=== PATIENT | female | born 1970 | race Caucasian/White ===

== ENCOUNTER → 2017-11-18 10:07 | Outpatient (CLI) | payer OTHER, SELFPAY ==
--- NOTE | 2017-11-18 10:09 | DI.US.S_ITS ---
PROCEDURE: US ABD AORTA ANEURYSM SCREEN INDICATIONS: Family History bicuspid/aortic valve issues TECHNIQUE: Real time scanning was performed of the aorta and iliac arteries, with image documentation. COMPARISON: None. FINDINGS: Aorta: Proximal aortic diameter measures 2 cm. Mid-aorta measures 1.4 cm. Distal aortic diameter is 1.4 cm. Iliac arteries: Right common iliac artery measures 0.9 cm. Left common iliac artery measures 0.9 cm. IMPRESSION: Negative for aneurysm. Dictated by: Nayan Werner M.D. on 11/18/2017 at 10:58 Approved by: Nayan Werner M.D. on 11/18/2017 at 10:59
--- NOTE | 2017-11-18 10:09 | DI.ECHO.S_ITS ---
[facility]---------+ [facility] +---------+ : : [address] : : : : [id number] : : : : Phone: [phone] Echocardiogram Report + + :Name: HORTENSIA SIDDIQI Study Date: 11/18/2017 Height: 65 in : :[facility] Exam Location: [place] Weight: 213 lb : : Gender: Female BSA: 2.0 m2 : :: 1970 Age: 47 yrs BP: 130/80 mmHg: :Reason For Study: Fam History of bicuspid aortic valve : : Performed By: Cynthia Page : :Referring: SHIMON YING : + + Interpretation Summary 1) Normal left ventricular thickness, size, wall motion, and systolic function (EF 60-65%). 2) Normal right ventricular size and function. 3) No significant valvular abnormalities. Aortic valve is trileaflet. 4) No prior echo available for comparison. Procedure: A two-dimensional transthoracic echocardiogram with color flow and Doppler was performed. The study quality was technically adequate. There is no prior echocardiogram noted for this patient. The patient was in sinus bradycardia with heart rates between 57-61 bpm during the exam. Left Ventricle: The left ventricle is normal in size, wall thickness, and systolic function without any focal wall motion abnormalities. The ejection fraction is estimated to be 60-65%. Assessment of diastolic parameters indicates normal left ventricular diastolic function and normal filling pressures. Right Ventricle: The right ventricle is normal in size and function. Atria: Both atria are normal in size. There is no Doppler evidence for an interatrial shunt. Mitral Valve: The mitral valve is normal in structure and function. There is trace mitral regurgitation. Aortic Valve: The aortic valve is trileaflet. The aortic valve opens well. There is no aortic valve stenosis. No aortic regurgitation is present. Tricuspid Valve: The tricuspid valve is normal in structure and function. There is a trace or physiologic amount of tricuspid regurgitation. The right ventricular systolic pressure is estimated at 21 mmHg assuming a right atrial pressure of 3 mm Hg. Pulmonic Valve: The pulmonic valve is not well visualized. There is a trace or physiologic amount of pulmonic regurgitation. Great Vessels: The aortic root is normal size. The ascending aorta is normal in size. The aortic arch could not be visualized. The pulmonary is not well visualized. The IVC is of normal diameter and collapses greater than 50% with a sniff. This suggests a low right atrial pressure of 3 mm Hg. Pericardium/ Pleura There is no pericardial effusion. There is no pleural effusion. MMode/2D Measurements & Calculations LVIDd: 4.9 cm LVOT diam: 1.9 cm LVIDs: 3.0 cm Ao root diam: 3.4 cm FS: 37.7 % asc Aorta Diam: 3.0 cm EPSS: 0.05 cm IVSd: 0.70 cm LVPWd: 0.73 cm LV allen. diameter/BSA (cm/m^2): 2.4 LV sys. diameter/BSA (cm/m^2): 1.5 LA A2 area: 20.6 cm2 RA long axis: 5.3 cm LA A4 area: 17.0 cm2 RA area: 16.1 cm2 LA length (vol): 6.1 cm RA vol: 41.6 ml LA vol: 48.7 ml RA : 20.5 ml/m2 LA vol index: 24.0 ml/m2 IVC diam: 1.5 cm Doppler Measurements & Calculations Ao V2 max: 118.9 cm/sec LVOT Max Clemente: 82.1 cm/sec Ao V2 mean: 91.1 cm/sec LV V1 max P.7 mmHg Ao max P.7 mmHg LV V1 VTI: 18.7 cm Ao mean P.5 mmHg MARGARITA(I,D): 2.0 cm2 Ao V2 VTI: 26.3 cm MARGARITA(V,D): 1.9 cm2 sev ratio: 0.71 MARGARITA indexed to BSA (cm^2/m^2): 0.99 MV E max clemente: 98.2 cm/sec TR max clemente: 211.7 cm/sec MV A max clemente: 57.0 cm/sec TR max P.9 mmHg MV E/A: 1.7 PA V2 max: 70.6 cm/sec Med Peak E' Clemente: 10.0 cm/sec PA V2 mean: 50.2 cm/sec E/E' med: 9.8 PA mean P.1 mmHg Lat Peak E' Clemente: 11.2 cm/sec PA Accel Time: 0.15 sec E/E' lat: 8.7 E/e' average: 9.3 MV dec time: 0.21 sec MV P1/2t: 59.4 msec MV P1/2t max clemente: 97.6 cm/sec MVA(P1/2t): 3.7 cm2 Reading Physician:03:33 PM
== END ==
PROVIDERS: Family Provider Family Medicine; PCP Family Medicine; Visit Provider Family Medicine
DX: Z13.6 Encounter for screening for cardiovascular disorders (principal); Z82.49 Family history of ischemic heart disease and other diseases of the circulatory system
CPT/HCPCS: 76706; 93306

== ENCOUNTER → 2017-12-17 10:47 | Outpatient (CLI) | payer OTHER, SELFPAY ==
--- NOTE | 2017-12-17 | DI.MG.S_ITS ---
BILATERAL DIGITAL SCREENING MAMMOGRAM 3D/2D WITH CAD: 12/17/2017 CLINICAL: Routine screening. Family history of breast cancer. Comparison is made to exams dated: 10/03/2016 mammogram - [facility], 02/22/2015 mammogram, and 08/09/2013 mammogram - [facility]. There are scattered fibroglandular elements in both breasts. Current study was also evaluated with a Computer Aided Detection (CAD) system. No significant masses, calcifications, or other findings are seen in either breast. There has been no significant interval change. IMPRESSION: NEGATIVE There is no mammographic evidence of malignancy. A 1 year screening mammogram is recommended. NOTE: For mammograms, a report in lay terms will be sent to the patient. Approximately 15% of breast malignancies will not be visualized mammographically. In the management of a palpable breast mass, a negative mammogram must not discourage biopsy of a clinically suspicious lesion. Electronically Signed By: Chris harrington/liliane:12/17/2017 16:36:07 letter sent: Normal Exam ACR BI-RADS Category 1: Negative 3341F
== END ==
PROVIDERS: PCP Family Medicine; Visit Provider Family Medicine
DX: Z12.31 Encounter for screening mammogram for malignant neoplasm of breast (principal); Z80.3 Family history of malignant neoplasm of breast
CPT/HCPCS: 77063; 77067

== ENCOUNTER → 2018-11-12 11:51 | Outpatient (CLI) | payer OTHER, SELFPAY ==
--- NOTE | 2018-11-12 11:54 | DI.RAD.S_ITS ---
PROCEDURE: XR HIP W PEL IF DONE LT MIN 4V INDICATIONS: hip pain, osteophytes? TECHNIQUE: AP pelvis with lateral view(s) of the bilateral hip(s). COMPARISON: None. FINDINGS: Bones: No acute fractures or dislocations. Pelvic ring appears intact. Minimal degenerative changes of the bilateral hip joints with small ossifications involving the bilateral superolateral acetabular rim which may represent accessory ossicles versus sequela of chronic labral degenerative change. Small enthesophyte/spur over the left greater trochanter. No suspicious bony lesions. Soft tissues: The visualized bowel gas pattern is normal. No suspicious soft tissue calcifications. Surgical clips in the right lower abdomen likely from prior appendectomy. IMPRESSION: Bilateral hip without acute osseous abnormalities. Minimal bilateral hip joint degenerative change. Small ossifications overlying the bilateral superolateral acetabular rim which may be seen with accessory ossicles versus sequela of chronic labral degenerative change. Dictated by: Justin Rm M.D. on 11/12/2018 at 13:47 Approved by: Justni Rm M.D. on 11/12/2018 at 13:49
== END ==
PROVIDERS: PCP Family Medicine; Visit Provider Family Medicine
DX: M25.559 Pain in unspecified hip (principal)
CPT/HCPCS: 73522

== ENCOUNTER → 2019-01-19 08:00 | Outpatient (CLI) | payer OTHER, SELFPAY ==
--- NOTE | 2019-01-19 | DI.MG.S_ITS ---
BILATERAL DIGITAL SCREENING MAMMOGRAM 3D/2D WITH CAD: 01/19/2019 CLINICAL: Routine screening. Family history of breast cancer. Comparison is made to exams dated: 12/17/2017 mammogram, 10/03/2016 mammogram - [facility], and 02/22/2015 mammogram - [facility]. There are scattered fibroglandular elements in both breasts. Current study was also evaluated with a Computer Aided Detection (CAD) system. No significant masses, calcifications, or other findings are seen in either breast. There has been no significant interval change. IMPRESSION: NEGATIVE There is no mammographic evidence of malignancy. A 1 year screening mammogram is recommended. This exam was interpreted at Station ID: [id number]. NOTE: For mammograms, a report in lay terms will be sent to the patient. Approximately 15% of breast malignancies will not be visualized mammographically. In the management of a palpable breast mass, a negative mammogram must not discourage biopsy of a clinically suspicious lesion. Electronically Signed By: Justin smith/liliane:01/19/2019 08:31:15 letter sent: Normal Exam ACR BI-RADS Category 1: Negative 3341F
== END ==
PROVIDERS: PCP Family Medicine; Visit Provider Family Medicine
DX: Z12.31 Encounter for screening mammogram for malignant neoplasm of breast (principal); Z80.3 Family history of malignant neoplasm of breast
CPT/HCPCS: 77063; 77067

== ENCOUNTER → 2019-04-11 14:13 | Outpatient (CLI) | payer OTHER, SELFPAY ==
--- NOTE | 2019-04-11 | DI.US.S_ITS ---
PROCEDURE: US SOFT TISSUE HEAD AND NECK INDICATIONS: CYST AFTER RIGHT OCCIIPITAL NERVE BLOCK TECHNIQUE: Real-time scanning was performed of the neck region of interest, with image documentation. COMPARISON: None. FINDINGS: There is a small circumscribed hypoechoic nodule with fatty hilum at the right posterior scalp in the region of pain. This measures 0.9 x 1 x 0.4 cm. No surrounding hyperemia. No mass or loculated fluid collection. IMPRESSION: Small right occipital scalp lymph node corresponding to the region of interest. The lymph node is morphologically normal. Dictated by: Deangelo Kilpatrick M.D. on 04/11/2019 at 16:00 Approved by: Deangelo Kilpatrick M.D. on 04/11/2019 at 16:03
== END ==
PROVIDERS: PCP Family Medicine; Referring Provider Family Medicine; Visit Provider Family Medicine
DX: L72.9 Follicular cyst of the skin and subcutaneous tissue, unspecified (principal)
CPT/HCPCS: 76536

== ENCOUNTER → 2019-05-16 09:30 | Outpatient (CLI) | payer OTHER, SELFPAY ==
[2019-05-16 10:29] LABS: Add Manual Diff / Slide Review NO; Basophils Absolute Auto 0 /uL (0-100); Basophils Percent Auto 0.5 % (0-2); Eosinophils Absolute Auto 200 /uL (0-450); Eosinophils Percent Auto 2.9 % (2-4); Hematocrit 40.6 % (36-46); Hemoglobin 13.5 g/dL (12.0-16.0); Lymphocytes Absolute Auto 2000 /uL (1100-4500); Mean Corpuscular HGB Conc 33.4 % (30-36); Mean Corpuscular Hemoglobin 31.3 PG (26-34); Mean Corpuscular Volume 93.6 fL (80-100); Monocytes Absolute Auto 600 /uL (0-900); Monocytes Percent Auto 7.2 % (3-14); Neutrophils Absolute Auto 5200 /uL (1500-7000); Neutrophils Percent Auto 64.4 % (50-75); Platelet Count 365 X10^3/uL (150-400); Red Blood Cell Count 4.33 X10^6/uL (4.0-5.2); Red Cell Distribution Width 12.4 % (11.6-14.8); White Blood Cell Count 8.1 X10^3/uL (4.5-11.0)
[2019-05-16 10:48] LABS: Alanine Aminotransferase 21 IU/L (<35); Albumin 4.6 g/dL (3.5-5.0); Albumin Globulin Ratio 1.6 (1.0-2.8); Alkaline Phosphatase 56 U/L (38-126); Aspartate Aminotransferase 34 IU/L (14-36); BUN Creatinine Ratio 21.1 (6-22); Bilirubin Total 1.4 mg/dL (0.2-1.3); Blood Urea Nitrogen 19 mg/dL (7-17); Carbon Dioxide 26 mmol/L (22-32); Chloride 103 mmol/L (98-107); Cholesterol 172 mg/dL (140-199); Estimated Glomerular Filt Rate > 60.0 mL/min (>60); Globulin 2.9 g/dL (1.7-4.1); Glucose 100 mg/dL (70-100); HDL Cholesterol 63 mg/dL (40-60); HEMOLYSIS < 15 (0-50); LDL Cholesterol Calculated 89 mg/dL (<100); Potassium 5.3 mmol/L (3.4-5.1); Sodium 139 mmol/L (137-145); Total Protein 7.5 g/dL (6.3-8.2); Triglycerides 101 mg/dL (35-150)
== END ==
PROVIDERS: PCP Family Medicine; Referring Provider Family Medicine; Visit Provider Family Medicine
DX: Z13.1 Encounter for screening for diabetes mellitus (principal); E78.5 Hyperlipidemia, unspecified; Z86.2 Personal history of diseases of the blood and blood-forming organs and certain disorders involving the immune mechanism
CPT/HCPCS: 36415; 80053; 80061; 85025

== ENCOUNTER → 2019-11-16 09:50 | Outpatient (CLI) | payer OTHER, SELFPAY ==
[2019-11-16 11:13] LABS: Alanine Aminotransferase 25 IU/L (<35); Albumin 4.4 g/dL (3.5-5.0); Albumin Globulin Ratio 1.7 (1.0-2.8); Alkaline Phosphatase 50 U/L (38-126); Aspartate Aminotransferase 37 IU/L (14-36); Bilirubin Total 1.1 mg/dL (0.2-1.3); Blood Urea Nitrogen 16 mg/dL (7-17); Calcium 9.5 mg/dL (8.4-10.2); Carbon Dioxide 30 mmol/L (22-32); Chloride 102 mmol/L (98-107); Estimated Glomerular Filt Rate > 60.0 mL/min (>60); Globulin 2.6 g/dL (1.7-4.1); Glucose 82 mg/dL (70-100); HEMOLYSIS 22 (0-50); Potassium 5.2 mmol/L (3.4-5.1); Sodium 136 mmol/L (137-145)
== END ==
PROVIDERS: PCP Family Medicine; Referring Provider Family Medicine; Visit Provider Family Medicine
DX: E80.6 Other disorders of bilirubin metabolism (principal); E87.5 Hyperkalemia
CPT/HCPCS: 36415; 80053

== ENCOUNTER → 2019-12-30 09:13 | Outpatient (CLI) | payer OTHER, SELFPAY ==
[2019-12-30 10:42] LABS: Alanine Aminotransferase 20 IU/L (<35); Albumin 4.3 g/dL (3.5-5.0); Albumin Globulin Ratio 1.5 (1.0-2.8); Alkaline Phosphatase 50 U/L (38-126); Aspartate Aminotransferase 31 IU/L (14-36); BUN Creatinine Ratio 16.5 (6-22); Bilirubin Total 0.9 mg/dL (0.2-1.3); Blood Urea Nitrogen 13 mg/dL (7-17); Calcium 9.4 mg/dL (8.4-10.2); Carbon Dioxide 31 mmol/L (22-32); Chloride 104 mmol/L (98-107); Estimated Glomerular Filt Rate > 60.0 mL/min (>60); Globulin 2.9 g/dL (1.7-4.1); Glucose 100 mg/dL (70-100); HEMOLYSIS < 15 (0-50); Potassium 4.6 mmol/L (3.4-5.1); Sodium 138 mmol/L (137-145); Total Protein 7.2 g/dL (6.3-8.2)
== END ==
PROVIDERS: PCP Family Medicine; Referring Provider Family Medicine; Visit Provider Family Medicine
DX: E80.6 Other disorders of bilirubin metabolism (principal); E87.5 Hyperkalemia
CPT/HCPCS: 36415; 80053

== ENCOUNTER → 2020-05-17 14:09 | Outpatient (CLI) | payer OTHER, SELFPAY ==
--- NOTE | 2020-05-17 | DI.MG.S_ITS ---
BILATERAL DIGITAL SCREENING MAMMOGRAM 3D/2D WITH CAD: 05/17/2020 CLINICAL: Routine Screening Family history of breast cancer. Comparison is made to exams dated: 01/19/2019 mammogram, 12/17/2017 mammogram, and 10/03/2016 mammogram - [facility]. There are scattered fibroglandular elements in both breasts. Current study was also evaluated with a Computer Aided Detection (CAD) system. No significant masses, calcifications, or other findings are seen in either breast. There has been no significant interval change. IMPRESSION: NEGATIVE There is no mammographic evidence of malignancy. A 1 year screening mammogram is recommended. This exam was interpreted at Station ID: [id number]. NOTE: For mammograms, a report in lay terms will be sent to the patient. Approximately 15% of breast malignancies will not be visualized mammographically. In the management of a palpable breast mass, a negative mammogram must not discourage biopsy of a clinically suspicious lesion. Electronically Signed By: Chris harrington/liliane:05/17/2020 14:30:46 letter sent: Normal Exam ACR BI-RADS Category 1: Negative 3341F
== END ==
PROVIDERS: PCP Family Medicine; Referring Provider Family Medicine; Visit Provider Family Medicine
DX: Z12.31 Encounter for screening mammogram for malignant neoplasm of breast (principal); Z80.3 Family history of malignant neoplasm of breast
CPT/HCPCS: 77063; 77067

== ENCOUNTER → 2020-10-11 07:15 | Outpatient (CLI) | payer OTHER, SELFPAY ==
--- NOTE | 2020-10-11 07:16 | DI.US.S_ITS ---
PROCEDURE: US SOFT TISSUE HEAD AND NECK INDICATIONS: INTERMITTANT POSTERIOR SCALP LUMP WITH MIGRAINES TECHNIQUE: Real-time scanning was performed of the neck region of interest, with image documentation. COMPARISON: [facility], SOFT TISSUE HEAD AND NECK, 04/11/2019, 14:28. FINDINGS: Assessment was performed in the area of current clinical concern, right posterior inferior scalp open lump. In this area there is a normal appearing lymph node measuring 1.0 x 0.3 x 0.9 cm with 2 mm thick cortex, normal. No additional mass or fluid collection is seen. IMPRESSION: Normal appearing lymph node in the area of current clinical concern. Dictated by: Mychal Marquez M.D. on 10/11/2020 at 10:08 Approved by: Mychal Marquez M.D. on 10/11/2020 at 10:09
== END ==
PROVIDERS: PCP Family Medicine; Referring Provider Family Medicine; Visit Provider Family Medicine
DX: L72.9 Follicular cyst of the skin and subcutaneous tissue, unspecified (principal); G43.909 Migraine, unspecified, not intractable, without status migrainosus
CPT/HCPCS: 76536

== ENCOUNTER → 2021-02-06 15:05 | Outpatient (CLI) | payer OTHER, SELFPAY ==
[2021-02-06 15:31] LABS: COVID19 -Nasal RAPID Negative (Negative)
== END ==
PROVIDERS: PCP Family Medicine; Visit Provider Physician Assistant
DX: Z20.822 Contact with and (suspected) exposure to COVID-19 (principal)
CPT/HCPCS: 87635

== ENCOUNTER → 2021-02-06 15:20 | Outpatient (CLI) | payer OTHER, SELFPAY ==
--- NOTE | 2021-02-06 15:21 | DI.RAD.S_ITS ---
PROCEDURE: XR CHEST 2V INDICATIONS: bronchitis vs PNA, asthma, SOB TECHNIQUE: 2 views of the chest were acquired. COMPARISON: [facility], , CHEST 2 VIEW, 03/16/2016, 15:56. FINDINGS: Surgical changes and devices: None. Lungs and pleura: Lungs are clear. No pleural effusions or pneumothorax. Mediastinum: Mediastinal contours are normal. Heart size is normal. Bones and chest wall: No suspicious bony abnormalities. Soft tissues appear unremarkable. IMPRESSION: No acute cardiopulmonary disease process. Dictated by: Remedios Roberts MD, PhD on 02/06/2021 at 15:44 Approved by: Remedios Roberts MD, PhD on 02/06/2021 at 15:46
== END ==
PROVIDERS: PCP Family Medicine; Referring Provider Physician Assistant; Visit Provider Physician Assistant
DX: J06.9 Acute upper respiratory infection, unspecified (principal); J45.909 Unspecified asthma, uncomplicated; R06.02 Shortness of breath; Z20.822 Contact with and (suspected) exposure to COVID-19
CPT/HCPCS: 71046; 87635

== ENCOUNTER → 2021-05-28 14:23 | Outpatient (CLI) | payer OTHER, SELFPAY ==
--- NOTE | 2021-05-28 | DI.MG.S_ITS ---
BILATERAL DIGITAL SCREENING MAMMOGRAM 3D/2D WITH CAD: 05/28/2021 CLINICAL: Family history of breast cancer. Routine screening. Comparison is made to exams dated: 05/17/2020 mammogram, 01/19/2019 mammogram, and 12/17/2017 mammogram - [facility]. The tissue of both breasts is predominantly fatty. Current study was also evaluated with a Computer Aided Detection (CAD) system. No significant masses, calcifications, or other findings are seen in either breast. There has been no significant interval change. IMPRESSION: NEGATIVE There is no mammographic evidence of malignancy. A 1 year screening mammogram is recommended. This exam was interpreted at Station ID: [id number]. NOTE: For mammograms, a report in lay terms will be sent to the patient. Approximately 15% of breast malignancies will not be visualized mammographically. In the management of a palpable breast mass, a negative mammogram must not discourage biopsy of a clinically suspicious lesion. Electronically Signed By: Tangela acosta/liliane:05/28/2021 14:59:30 letter sent: Normal Exam ACR BI-RADS Category 1: Negative 3341F
== END ==
PROVIDERS: PCP Family Medicine; Referring Provider Family Medicine; Visit Provider Family Medicine
DX: Z12.31 Encounter for screening mammogram for malignant neoplasm of breast (principal); Z80.3 Family history of malignant neoplasm of breast
CPT/HCPCS: 77063; 77067

== ENCOUNTER → 2021-07-07 10:36 | Outpatient (CLI) | payer OTHER, SELFPAY | PROVIDERS: PCP Family Medicine; Visit Provider Physician Assistant | DX: J02.9 Acute pharyngitis, unspecified (principal) | CPT/HCPCS: 87070 ==

== ENCOUNTER → 2022-01-29 07:19 | Outpatient (CLI) | payer OTHER, SELFPAY ==
[2022-01-29 08:09] LABS: Influenza A - CEPHEID Flu A POSITIVE (NEGATIVE); Influenza B - CEPHEID Flu B NEGATIVE (NEGATIVE); Respiratory Syncytial Virus Negative (Negative)
[2022-01-29 08:13] LABS: COVID-19 CEPHEID 4-PLEX PCR Negative (Negative)
== END ==
PROVIDERS: PCP Family Medicine; Visit Provider Nurse Practitioner Family
DX: R05.9 Cough, unspecified (principal)
CPT/HCPCS: 0241U

== ENCOUNTER → 2022-06-02 | Outpatient (CLI) | payer OTHER, SELFPAY ==
--- NOTE | 2022-06-03 15:37 | DI.MG.S_ITS ---
Procedure: MM screening mammo BI BILATERAL DIGITAL SCREENING MAMMOGRAM 3D/2D WITH CAD: 06/02/2022 CLINICAL: Routine screening. Family history of breast cancer. Comparison is made to exams dated: 05/28/2021 mammogram, 05/17/2020 mammogram, and 01/19/2019 mammogram - [facility]. There are scattered areas of fibroglandular density in both breasts (category b / 25%-50% glandular tissue). Current study was also evaluated with a Computer Aided Detection (CAD) system. No significant masses, calcifications, or other findings are seen in either breast. There has been no significant interval change. IMPRESSION: NEGATIVE There is no mammographic evidence of malignancy. A 1 year screening mammogram is recommended. Based on the Tyrer Cuzick model (a risk assessment model) the patient?s lifetime risk is 11.1% and her 10 year risk is 2.6%. According to the ACR, ACS, and NCCN guidelines, an annual breast MRI exam along with mammogram is recommended if the patient?s lifetime risk is 20% or greater. This exam was interpreted at Station ID: [id number]. Continued Report - Page 2 of 2 Patient Name: HORTENSIA SIDDIQI date: 1970 Sex: F Attending Physician: Elías Indications: Date: 06/02/2022 13:36 At the request of: KOBI ASLAZAR Procedure: MM screening mammo BI NOTE: For mammograms, a report in lay terms will be sent to the patient. Approximately 15% of breast malignancies will not be visualized mammographically. In the management of a palpable breast mass, a negative mammogram must not discourage biopsy of a clinically suspicious lesion. Electronically Signed By: Yordan wheatley/liliane:06/02/2022 13:36:14 letter sent: Normal Exam ACR BI-RADS Category 1: Negative 3341F
== END ==
LOC: MAMMO 13:18
PROVIDERS: PCP Family Medicine; Referring Provider Family Medicine; Visit Provider Family Medicine
DX: Z12.31 Encounter for screening mammogram for malignant neoplasm of breast (principal); Z80.3 Family history of malignant neoplasm of breast
CPT/HCPCS: 77063; 77067

== ENCOUNTER → 2022-07-07 09:03 | Outpatient (CLI) | payer OTHER, SELFPAY ==
[2022-07-07 11:26] LABS: Alanine Aminotransferase 21 IU/L (<35); Albumin 4.4 g/dL (3.5-5.0); Albumin Globulin Ratio 1.8 (1.0-2.8); Alkaline Phosphatase 56 U/L (38-126); Aspartate Aminotransferase 26 IU/L (14-36); BUN Creatinine Ratio 21.4 (6-22); Blood Urea Nitrogen 18 mg/dL (7-17); Calcium 9.4 mg/dL (8.4-10.2); Carbon Dioxide 27 mmol/L (22-32); Chloride 104 mmol/L (98-107); Cholesterol 175 mg/dL (140-199); Estimated Glomerular Filt Rate > 60 mL/min (>60); Globulin 2.4 g/dL (1.7-4.1); Glucose 94 mg/dL (70-100); HDL Cholesterol 55 mg/dL (40-60); HEMOLYSIS < 15 (0-50); LDL Cholesterol Calculated 84 mg/dL (<100); Potassium 4.8 mmol/L (3.4-5.1); Sodium 137 mmol/L (137-145); Total Protein 6.8 g/dL (6.3-8.2); Triglycerides 181 mg/dL (35-150)
[2022-07-07 11:50] LABS: TSH w/ Reflex to FT4 0.99 uIU/mL (0.47-4.68)
== END ==
PROVIDERS: PCP Family Medicine; Referring Provider Family Medicine; Visit Provider Family Medicine
DX: E03.9 Hypothyroidism, unspecified (principal); E78.5 Hyperlipidemia, unspecified; E87.5 Hyperkalemia
CPT/HCPCS: 36415; 80053; 80061; 84443

== ENCOUNTER → 2023-01-01 12:14 | Outpatient (CLI) | payer OTHER, SELFPAY ==
--- NOTE | 2023-01-01 12:15 | DI.RAD.S_ITS ---
PROCEDURE: XR FOOT LT MIN 3V INDICATIONS: Left toe injury TECHNIQUE: 3 views of the foot were acquired. COMPARISON: None. FINDINGS: Bones: No acute fractures or dislocations. No suspicious bony lesions. Moderate degenerative changes of the left 1st metatarsophalangeal joint. Prominent plantar calcaneal enthesophyte. Soft tissues: No tibiotalar joint effusion. Achilles tendon appears normal. IMPRESSION: Left foot without acute fracture or dislocation. Moderate degenerative changes of the 1st metatarsophalangeal joint. Prominent plantar calcaneal enthesophyte. If there are persistent symptoms or clinical suspicion for pathology, then repeat radiographs or advanced imaging (CT or MRI) may be considered for further evaluation. Dictated by: Justin Rm M.D. on 01/01/2023 at 13:47 Approved by: Justin Rm M.D. on 01/01/2023 at 13:48
== END ==
PROVIDERS: PCP Family Medicine; Referring Provider Nurse Practitioner Family; Visit Provider Nurse Practitioner Family
DX: M79.672 Pain in left foot (principal); M77.32 Calcaneal spur, left foot
CPT/HCPCS: 73630

== ENCOUNTER → 2023-02-16 11:45 | Outpatient (CLI) | payer OTHER, SELFPAY ==
--- NOTE | 2023-02-16 11:48 | DI.RAD.S_ITS ---
PROCEDURE: XR SHOULDER RT MIN 2V INDICATIONS: Deep anterior shoulder pain TECHNIQUE: 3 views of the shoulder were acquired. COMPARISON: None. FINDINGS: Bones: No fractures or dislocations. No suspicious bony lesions. Visualized ribs appear intact. Soft tissues: No suspicious soft tissue calcifications. IMPRESSION: No acute bony abnormality. Dictated by: Stephen Tariq M.D. on 02/16/2023 at 14:06 Approved by: Stephen Tariq M.D. on 02/16/2023 at 14:12
== END ==
PROVIDERS: PCP Family Medicine; Referring Provider Family Medicine; Visit Provider Family Medicine
DX: M25.511 Pain in right shoulder (principal)
CPT/HCPCS: 73030

== ENCOUNTER → 2023-04-10 06:58 | Outpatient (CLI) | payer OTHER, SELFPAY ==
[2023-04-10 08:04] LABS: Add Manual Diff / Slide Review NO; Basophils Absolute Auto 100 /uL (0-100); Basophils Percent Auto 0.7 % (0-2); Eosinophils Absolute Auto 300 /uL (0-450); Eosinophils Percent Auto 4.3 % (2-4); Hematocrit 38.2 % (36-46); Hemoglobin 12.9 g/dL (12.0-16.0); Lymphocytes Absolute Auto 2100 /uL (1100-4500); Mean Corpuscular HGB Conc 33.7 % (30-36); Mean Corpuscular Hemoglobin 29.9 PG (26-34); Mean Corpuscular Volume 88.7 fL (80-100); Monocytes Absolute Auto 600 /uL (0-900); Monocytes Percent Auto 7.8 % (3-14); Neutrophils Absolute Auto 4100 /uL (1500-7000); Neutrophils Percent Auto 57.2 % (50-75); Platelet Count 335 X10^3/uL (150-400); Red Blood Cell Count 4.31 X10^6/uL (4.0-5.2); Red Cell Distribution Width 13.2 % (11.6-14.8); White Blood Cell Count 7.1 X10^3/uL (4.5-11.0)
[2023-04-10 08:07] LABS: Hemoglobin A1C% w Est Avg Glu 5.3 % (4.0-6.0)
[2023-04-10 08:29] LABS: Alanine Aminotransferase 31 IU/L (<35); Albumin 4.2 g/dL (3.5-5.0); Albumin Globulin Ratio 1.5 (1.0-2.8); Alkaline Phosphatase 72 U/L (38-126); Aspartate Aminotransferase 36 IU/L (14-36); BUN Creatinine Ratio 14.6 (6-22); Bilirubin Total 0.7 mg/dL (0.2-1.3); Blood Urea Nitrogen 12 mg/dL (7-17); Calcium 9.6 mg/dL (8.4-10.2); Carbon Dioxide 27 mmol/L (22-32); Chloride 99 mmol/L (98-107); Cholesterol 192 mg/dL (140-199); Estimated Glomerular Filt Rate > 60 mL/min (>60); Globulin 2.8 g/dL (1.7-4.1); Glucose 96 mg/dL (70-100); HDL Cholesterol 51 mg/dL (40-60); HEMOLYSIS < 15 (0-50); LDL Cholesterol Calculated 87 mg/dL (<100); Potassium 4.1 mmol/L (3.4-5.1); Sodium 137 mmol/L (137-145); Triglycerides 268 mg/dL (35-150)
[2023-04-10 08:59] LABS: TSH w/ Reflex to FT4 1.83 uIU/mL (0.47-4.68)
[2023-04-11 21:52] LABS: High Sensitivity CRP - Cardiac 4.7 mg/L (1.0-3.0)
[2023-04-14 09:28] LABS: Insulin Level Total 11.5 uIU/mL (2.6-24.9)
== END ==
PROVIDERS: Family Medicine; PCP Family Medicine; Referring Provider Family Medicine; Visit Provider Family Medicine
DX: E66.01 Morbid (severe) obesity due to excess calories (principal); R07.89 Other chest pain; E03.9 Hypothyroidism, unspecified; E78.5 Hyperlipidemia, unspecified; E66.3 Overweight
CPT/HCPCS: 36415; 80053; 80061; 83036; 83525; 84443; 85025; 86140

== ENCOUNTER → 2023-06-16 15:45 | Outpatient (CLI) | payer OTHER, SELFPAY ==
--- NOTE | 2023-06-16 15:46 | DI.MG.S_ITS ---
BILATERAL DIGITAL SCREENING MAMMOGRAM 3D/2D WITH CAD: 06/16/2023 CLINICAL: Routine screening. Family history of breast cancer. Comparison is made to exams dated: 06/02/2022 mammogram, 05/28/2021 mammogram, and 05/17/2020 mammogram - [facility]. There are scattered areas of fibroglandular density in both breasts (category b / 25%-50% glandular tissue). Current study was also evaluated with a Computer Aided Detection (CAD) system. No significant masses, calcifications, or other findings are seen in either breast. There has been no significant interval change. IMPRESSION: NEGATIVE There is no mammographic evidence of malignancy. A 1 year screening mammogram is recommended. Based on the Tyrer Cuzick model (a risk assessment model) the patient's lifetime risk is 11.0% and her 10 year risk is 2.7%. According to the ACR, ACS, and NCCN guidelines, an annual breast MRI exam along with mammogram is recommended if the patient's lifetime risk is 20% or greater. This exam was interpreted at Station ID: [id number]. NOTE: For mammograms, a report in lay terms will be sent to the patient. Approximately 15% of breast malignancies will not be visualized mammographically. In the management of a palpable breast mass, a negative mammogram must not discourage biopsy of a clinically suspicious lesion. Electronically Signed By: Justin smith/liliane:06/17/2023 07:19:12 letter sent: Normal Exam ACR BI-RADS Category 1: Negative 3341F
== END ==
PROVIDERS: PCP Family Medicine; Referring Provider Family Medicine; Visit Provider Family Medicine
DX: Z12.31 Encounter for screening mammogram for malignant neoplasm of breast (principal); Z80.3 Family history of malignant neoplasm of breast; R92.323 Mammographic fibroglandular density, bilateral breasts
CPT/HCPCS: 77063; 77067

== ENCOUNTER 2023-06-25 09:45 | Day surgery (SDC) | payer OTHER, SELFPAY ==
[2023-06-25 11:17] VITALS: BP 136/82; PULSE 92; RESP 16; TEMP 36.2; O2SAT 98
[2023-06-25] MEDS: LACTATED RINGERS 1,000 ML 42 ML IV (11:23)
--- NOTE | 2023-06-25 11:54 | P.HP_ITS ---
History of Present Illness History of Present Illness Date Patient Seen: 06/25/23 Time Patient Seen: 11:54 Chief complaint: Screening Colonoscopy Narrative: Casie is a 53-year-old woman who is here for a colonoscopy. She has never had 1 before. No known family history of colon cancer. [facility] Medical History (Updated 06/25/23 @ 11:55 by Álvaro Diop MD) Obesity, Class II, BMI 35-39.9 Acrochordon Elevated LFTs Hyperbilirubinemia Hyperkalemia Sleep apnea Asthma (~1988) Seasonal allergies (~1982) Anxiety (~1989) Migraines (~2004) History of frequent headaches (~2004) Herniated disc Foot pain (~2013) Chronic back pain (~1999) Chickenpox (~1977) Irregular menstrual cycle Body mass index (BMI) of 30.0 to 39.9 (12/17/15) Surgical History Anesthesia History of epidural anesthesia Status post cholecystectomy (~2013) Status post appendectomy (~2012) Status post delivery (~2004) Family History (Updated 11/17/22 @ 14:26 by Camelia Mckinley DO) Father Age: 76 Hypertension Diverticulitis Grandmother Diabetes mellitus Mother Age: 75 Spinal stenosis Lymphoma, follicular Grandfather Cancer Grandmother Cancer Brother Bicuspid aortic valve Social History marital status: Smoking Status: Never smoker alcohol intake: current substance use type: does not use Meds Home Medications and Allergies Home Medications Medication Instructions Recorded Confirmed Type albuterol sulfate 2.5 mg/3 mL 2.5 mg (3 mL) inhalation QID PRN 03/21/22 05/11/23 Rx (0.083 %) solution for nebulization shortness of breath or wheezing #60 ea albuterol sulfate 90 mcg/actuation See Rx Instructions .Route 03/21/22 05/11/23 Rx aerosol inhaler .COMPLEX #17 grams epinephrine 0.3 mg/0.3 mL 0.3 mg (0.3 mL) IM ONCE #2 ea 03/21/22 05/11/23 Rx injection, auto-injector (EpiPen) fluticasone 250 mcg-salmeterol 50 1 inh inhalation BID #180 ea 04/21/22 06/25/23 Rx mcg/dose blistr powdr for inhalation (Advair Diskus) fluticasone propionate 50 See Rx Instructions .Route 05/20/22 05/11/23 Rx mcg/actuation nasal .COMPLEX #16 grams spray,suspension melatonin 10 mg tablet 10 mg PO BEDTIME PRN Sleep 06/16/22 06/25/23 History zolmitriptan 5 mg nasal spray 1 spray intranasal Q2H PRN 11/17/22 06/25/23 Rx headache #6 ea propranolol 40 mg tablet 40 mg PO ONCE PM #90 tabs 11/18/22 06/25/23 Rx diclofenac potassium 50 mg oral 50 mg PO ONCE #9 ea 04/13/23 05/11/23 Rx powder packet (Venture Incite) peg 3350-sod sulf,[id number]-[id number]-dtx 1,000 ml PO DIRECTED #2,000 mL 05/11/23 05/11/23 Rx 178.7-7.3-0.5-1.12-0.9 gram oral soln (Suflave) insulin syringe,safetyneedle 1 mL 0.5 ml miscellaneous QWEEK #4 ea 05/19/23 Rx 29 gauge x 1/2 (BD SafetyGlide Insulin Syringe) alprazolam 0.5 mg tablet 0.5 mg PO DAILY PRN anxiety re air 06/22/23 06/22/23 Rx travel #20 tabs semaglutide 0.25 mg or 0.5 mg (2 See Rx Instructions SUBCUT QWEEK 06/22/23 06/25/23 Rx mg/3 mL) subcutaneous pen injector #6 mL (Ozempic) Allergies Allergy/AdvReac Type Severity Reaction Status Date / Time iodine [IODINE] Allergy Mild Verified 06/25/23 11:13 Exam Vital Signs (past 8 hours): - 06/25/23 11:17 Temperature 97.2 F L Pulse Rate 92 H Respiratory Rate 16 Blood Pressure 136/82 Pulse Oximetry 98 Oxygen Delivery Method Room Air Oxygen Delivery Method Room Air Const General: No acute distress Resp Effort & Inspection: normal respiratory effort Assessment & Plan Assessment and plan (1) Colon cancer screening: Status: Acute Plan We reviewed the risks and benefits of colonoscopy for colon cancer screening and she would like to proceed.
--- NOTE | 2023-06-25 12:46 | PM.OP.COLON ---
Operative Date/Time/Diagnoses Date of procedure: 06/25/23 Time of procedure: 12:47 Pre-op diagnosis: Colon cancer screening Post-op diagnosis: same Procedure & Clinicians Study performed: Colonoscopy Same procedure as scheduled: Yes Surgeon: Álvaro Diop Procedure Notes Procedure in detail: Surgeon: Álvaro Diop MD Anesthesia: Sejal Painting CRNA Procedure: The patient was brought to the endoscopy suite, placed in left lateral decubitus position. The patient was connected to monitoring devices. A time-out was performed. Sedation was administered. Once the patient was adequately sedated, a digital rectal exam was performed and was normal. The scope was then inserted and advanced to the cecum where the appendiceal orifice was identified and photographed. The scope was then slowly withdrawn over greater than 6 minutes. The mucosa was thoroughly inspected. No polyps were found. There were rare diverticula in the sigmoid colon. The scope was retroflexed in the rectum. No other abnormalities were seen. The scope was straightened and removed. The patient was awakened and brought to recovery. Scope withdrawal time: 6 minutes Sedation time: 10 minutes EBL: 0 Findings: Rare diverticula in the sigmoid colon Post-procedure Recommendations: Colonoscopy in 10 years Disposition: PACU
[2023-06-25 12:50] VITALS: BP 105/58; PULSE 84; RESP 16; TEMP 36.7; O2SAT 100
[2023-06-25 12:55] VITALS: BP 116/73; PULSE 72; RESP 12; O2SAT 99
[2023-06-25 13:00] VITALS: BP 120/72; PULSE 70; RESP 12; TEMP 36.7; O2SAT 100
== END 2023-06-25 13:40 | disposition home or self-care (01) ==
PROVIDERS: PCP Family Medicine; Referring Provider Surgery; Visit Provider Surgery
PROC: 0DJD8ZZ Inspection of Lower Intestinal Tract, Via Natural or Artificial Opening Endoscopic (ICD-10-PCS; CPT 45378; principal; 2023-06-25 10:45)
DX: Z12.11 Encounter for screening for malignant neoplasm of colon (principal); K57.30 Diverticulosis of large intestine without perforation or abscess without bleeding
CPT/HCPCS: 45378; J2704

== ENCOUNTER → 2023-07-27 07:09 | Outpatient (CLI) | payer OTHER, SELFPAY ==
[2023-07-27 08:49] LABS: Hemoglobin A1C% w Est Avg Glu 4.7 % (4.0-6.0)
[2023-07-27 08:52] LABS: Alanine Aminotransferase 23 IU/L (<35); Albumin 4.5 g/dL (3.5-5.0); Albumin Globulin Ratio 1.7 (1.0-2.8); Alkaline Phosphatase 68 U/L (38-126); Aspartate Aminotransferase 31 IU/L (14-36); BUN Creatinine Ratio 19.5 (6-22); Bilirubin Total 1.3 mg/dL (0.2-1.3); Blood Urea Nitrogen 15 mg/dL (7-17); Calcium 9.3 mg/dL (8.4-10.2); Carbon Dioxide 26 mmol/L (22-32); Chloride 104 mmol/L (98-107); Cholesterol 193 mg/dL (140-199); Estimated Glomerular Filt Rate > 60 mL/min (>60); Globulin 2.6 g/dL (1.7-4.1); Glucose 85 mg/dL (70-100); HDL Cholesterol 53 mg/dL (40-60); HEMOLYSIS < 15 (0-50); LDL Cholesterol Calculated 108 mg/dL (<100); Potassium 4.2 mmol/L (3.4-5.1); Sodium 138 mmol/L (137-145); Total Protein 7.1 g/dL (6.3-8.2); Triglycerides 162 mg/dL (35-150)
[2023-07-27 08:56] LABS: High Sensitivity CRP - Cardiac 2.9 mg/L (1.0-3.0)
[2023-07-28 07:36] LABS: Insulin Level Total 5.8 uIU/mL (2.6-24.9)
== END ==
PROVIDERS: PCP Family Medicine; Referring Provider Family Medicine; Visit Provider Family Medicine
DX: E66.9 Obesity, unspecified (principal); E78.5 Hyperlipidemia, unspecified; R79.82 Elevated C-reactive protein (CRP); E66.3 Overweight
CPT/HCPCS: 36415; 80053; 80061; 83036; 83525; 86140

== ENCOUNTER → 2023-12-07 18:24 | Outpatient (CLI) | payer OTHER, SELFPAY | PROVIDERS: PCP Family Medicine; Visit Provider Physician Assistant Surgical | DX: R30.0 Dysuria (principal) | CPT/HCPCS: 87077; 87086; 87186 ==

== ENCOUNTER → 2024-02-11 15:24 | Outpatient (CLI) | payer OTHER, SELFPAY ==
--- NOTE | 2024-02-11 15:25 | DI.US.S_ITS ---
PROCEDURE: US PELVIC COMPLETE INDICATIONS: Heavy bleeding during menses TECHNIQUE: Real-time scanning was performed of the pelvic organs, with image documentation. Additional endovaginal scanning was necessary due to incomplete visualization of the adnexal and endometrial structures by transabdominal scanning. COMPARISON: None. FINDINGS: Uterus: Uterus is anteverted and normal in size at 8.7 x 5.6 x 5.0 cm. The myometrium is homogeneous. The endometrium is obscured. There is a central mass within the uterus with posterior shadowing, measuring 4.3 x 3.5 x 3.2 centimeters. Nabothian cysts are present. Ovaries: Right ovary not visualized due to overlying bowel gas. Left ovary measures 2.0 x 1.3 x 1.2 centimeter, volume of 1.6 milliliter. Other: No pathologic free abdominal or pelvic fluid. IMPRESSION: Endometrium is obscured by a 4.3 x 3.5 x 3.2 centimeter central mass with posterior attenuation. Findings probably represent a submucosal fibroid, but malignancy is not entirely excluded. Recommend pelvic MRI with contrast (gynecologic mass protocol) for better characterization. We strive to produce accurate, complete, and clear reports of imaging services. To assist us in improving patient care, this report was composed using standard report templates and voice recognition software. Therefore, it may contain abnormal punctuation, insertions and/or omissions. Occasional wrong-word or sound-alike substitutions may occur. Though we review the report and make efforts to correct it, we do recommend that the report be read carefully in proper context to recognize any text inaccuracies. Dictated by: Ok Corey M.D. on 02/11/2024 at 16:58 Approved by: Ok Corey M.D. on 02/11/2024 at 17:00
[2024-02-11 17:11] LABS: Appearance Urine UA CLEAR; Bilirubin Urine UA NEGATIVE (NEGATIVE); Color Urine UA YELLOW; Glucose Urine UA NEGATIVE (Negative); Ketones Urine UA NEGATIVE (NEGATIVE); Leukocyte Esterase Urine UA TRACE (NEGATIVE); Nitrite Urine UA NEGATIVE (Negative); Occult Blood Urine UA NEGATIVE (Negative); Protein Urine UA NEGATIVE (Negative); Specific Gravity Urine UA <=1.005 (1.000-1.035); Urobilinogen Urine UA 0.2 E.U./dL (0.2)
[2024-02-11 17:13] LABS: pH Urine UA 7.5 (4.5-8.0)
[2024-02-11 17:23] LABS: Bacteria Urine None Seen; Culture Indicated Urine Cult Not Indicated; RBC Urine None Seen (0-5/HPF); Squamous Epithelial Cell Urine None Seen (0-5/HPF); Urine Volume 10mL (spun); WBC Urine None Seen (0-5/HPF)
== END ==
PROVIDERS: PCP Family Medicine; Referring Provider Physician Assistant; Visit Provider Physician Assistant
DX: N92.0 Excessive and frequent menstruation with regular cycle (principal); N39.0 Urinary tract infection, site not specified; N85.9 Noninflammatory disorder of uterus, unspecified
CPT/HCPCS: 76830; 76856; 81001

== ENCOUNTER → 2024-02-15 08:12 | Outpatient (CLI) | payer OTHER, SELFPAY ==
--- NOTE | 2024-02-15 08:14 | DI.MRI.S_ITS ---
PROCEDURE: MR PELVIS WO/W CON INDICATIONS: Abnormal U/S 02/11/24 TECHNIQUE: Coronal HASTE, sagittal breath-hold T2 FSE; axial T1 FSE with and without fat saturation through the pelvis. Optional long- and short-axis uterine nonbreath-hold T2 FSE through the uterus. Sagittal or axial dynamic VIBE during administration of contrast. Post-contrast axial or coronal VIBE/2-D FLASH with fat saturation from the iliac crests to the symphysis. Optional diffusion weighted imaging and ADC may be performed. COMPARISON: [facility], , PELVIC COMPLETE, 02/11/2024, 15:30. FINDINGS: Image quality: Diagnostic Lower abdomen: No bowel obstruction in the lower abdomen. Bladder: Unremarkable Reproductive organs: Possible hemorrhagic cyst is seen in the left ovary. The adnexal structures are otherwise unremarkable. The endometrium is thin and distorted by multiple presumed fibroids. There are numerous nabothian cysts within the cervix. Multiple presumed fibroids are present, overall with low T2 signal. Heterogeneous enhancement of the fibroids indicate partial degeneration Left lower fibroid measures 3.5 x 3.1 x 3.4 cm, FIGO 2-5. Right fundal fibroid (FIGO 4) measures 3.7 x 3.3 x 2.7 cm. Multiple smaller fibroids are also seen. Rectum: Distended with stool, causing surrounding artifact. Vessels and lymph nodes: No aneurysmal vessel or pathologic lymph nodes identified by size criteria. Pelvic wall: Unremarkable Bones: No suspicious enhancement IMPRESSION: Fibroid uterus with the 2 largest lesions described above. There is some distortion of the endometrium. The largest fibroid is classified as FIGO 2-5 in the left lower uterine region. There are numerous nabothian cysts. Heterogeneous enhancement indicates partial degeneration Suspected small hemorrhagic cyst is seen in the left ovary. Dictated by: Yordan Hanson M.D. on 02/15/2024 at 10:49 Approved by: Yordan Hanson M.D. on 02/15/2024 at 10:59
== END ==
PROVIDERS: PCP Family Medicine; Referring Provider Family Medicine; Visit Provider Family Medicine
DX: N92.0 Excessive and frequent menstruation with regular cycle (principal); R93.89 Abnormal findings on diagnostic imaging of other specified body structures; D25.9 Leiomyoma of uterus, unspecified; N88.8 Other specified noninflammatory disorders of cervix uteri
CPT/HCPCS: 72197; A9579

== ENCOUNTER → 2024-07-18 14:45 | Outpatient (CLI) | payer OTHER, SELFPAY ==
--- NOTE | 2024-07-18 14:48 | DI.MG.S_ITS ---
MM screening mammo BI: 07/18/2024. BI-RADS: 1 CLINICAL: 54-year old female for bilateral screening mammogram. Tyrer-Cuzick lifetime risk of 8.5%. No personal or first-degree family history of breast cancer. PRIOR EXAMS 06/16/2023, 06/02/2022, 05/28/2021, 05/17/2020, 01/19/2019, 12/17/2017, 10/08/2016, 10/03/2016. MAMMOGRAPHY TECHNIQUE: 2D and 3D (tomosynthesis) digital mammographic views obtained, with additional images as needed for full coverage. Current study was also evaluated with a Computer Aided Detection (CAD) system. DENSITY B. There are scattered areas of fibroglandular density. MAMMOGRAPHY FINDINGS Bilateral: No suspicious mass, asymmetry, microcalcification, or other abnormality seen. IMPRESSION: * No evidence of malignancy. RECOMMENDATIONS Bilateral * Annual screening mammography. OVERALL ASSESSMENT CATEGORY BI-RADS-1: Negative. The [employer] recommends annual screening mammography beginning at age 40 for women with average risk of breast cancer. ELECTRONICALLY SIGNED: Yordan Hanson M.D. on 07/19/2024 at 07:52:36 AM PT Interpreting Station ID: [id number]
== END ==
PROVIDERS: Family Provider Family Medicine; PCP Family Medicine; Referring Provider Family Medicine; Visit Provider Family Medicine
DX: Z12.31 Encounter for screening mammogram for malignant neoplasm of breast (principal)
CPT/HCPCS: 77063; 77067

== ENCOUNTER → 2024-08-25 14:49 | Outpatient (CLI) | payer OTHER, SELFPAY | PROVIDERS: Family Provider Family Medicine; PCP Family Medicine; Referring Provider Orthopaedic Surgery; Visit Provider Orthopaedic Surgery | DX: R20.0 Anesthesia of skin (principal) | CPT/HCPCS: 95886; 95910 ==

== ENCOUNTER → 2025-02-03 07:48 | Outpatient (CLI) | payer OTHER, SELFPAY ==
[2025-02-03 09:03] LABS: Add Manual Diff / Slide Review NO; Hematocrit 40.0 % (36-46); Hemoglobin 13.4 g/dL (12.0-16.0); Lymphocytes Absolute Auto 1800 /uL (1100-4500); Mean Corpuscular HGB Conc 33.4 % (30-36); Mean Corpuscular Hemoglobin 30.2 PG (26-34); Mean Corpuscular Volume 90.3 fL (80-100); Platelet Count 315 X10^3/uL (150-400)
[2025-02-03 09:20] LABS: Alanine Aminotransferase 24 IU/L (<35); Albumin 4.2 g/dL (3.5-5.0); Albumin Globulin Ratio 1.6 (1.0-2.8); Alkaline Phosphatase 64 U/L (38-126); Blood Urea Nitrogen 16 mg/dL (7-17); Carbon Dioxide 24 mmol/L (22-32); Chloride 107 mmol/L (98-107); Cholesterol 195 mg/dL (140-199); Estimated Glomerular Filt Rate > 60 mL/min (>60); Globulin 2.6 g/dL (1.7-4.1); HDL Cholesterol 57 mg/dL (40-60); HEMOLYSIS < 15 (0-50); Potassium 4.4 mmol/L (3.4-5.1); Sodium 138 mmol/L (137-145); Total Protein 6.8 g/dL (6.3-8.2); Triglycerides 188 mg/dL (35-150)
[2025-02-03 09:22] LABS: Calcium 9.8 mg/dL (8.4-10.2); Glucose 93 mg/dL (70-99)
[2025-02-03 09:43] LABS: TSH w/ Reflex to FT4 1.18 uIU/mL (0.47-4.68)
[2025-02-04 05:08] LABS: CRP, High Sensitivity 1.39 mg/L (0.00-3.00)
== END ==
PROVIDERS: PCP Family Medicine; Referring Provider Family Medicine; Visit Provider Family Medicine
DX: E03.9 Hypothyroidism, unspecified (principal); E78.5 Hyperlipidemia, unspecified; E78.2 Mixed hyperlipidemia; E66.3 Overweight; N92.0 Excessive and frequent menstruation with regular cycle
CPT/HCPCS: 36415; 80053; 80061; 84443; 85025; 86140